=== PATIENT | female | born 1945 | race Native Hawaiian/Other Pacific Islander ===

== ENCOUNTER 2018-01-15 11:05 | Day surgery (SDC) | payer MEDICARE ==
[2018-01-15] MEDS ORDERED: Midazolam 2 MG/2 ML VIAL ONE (14:26)
[2018-01-15] MEDS ORDERED: Propofol 10 mg/ml Inj (20 ML) ONE (14:26)
[2018-01-15] MEDS ORDERED: HYDROmorphone 0.5 mg/0.5 ml ISec IVP PRN (15:10)
[2018-01-15 18:35] VITALS: RESP 18; O2SAT 96
[2018-01-15 18:36] VITALS: BP 133/97; PULSE 95; TEMP 97.9
--- NOTE | 2018-01-16 10:11 | OP ---
PROCEDURE DATE: 01/15/2018 PREOPERATIVE DIAGNOSES: Endometrial hyperplasia, endometrial polyp, post menopausal bleeding. POSTOPERATIVE DIAGNOSES: Endometrial hyperplasia, endometrial polyp, post menopausal bleeding. PROCEDURE PERFORMED: Operative hysteroscopy, endometrial polypectomy, dilation and curettage. TYPE OF ANESTHESIA: LMA. FINDINGS: Small, atrophic, anteverted uterus, cervical stenosis. Uterus sounded to 7 cm. Two polypoid vascular type polyps noted within the endometrial cavity and removed with MyoSure device. Good hemostasis noted. ESTIMATED BLOOD LOSS: 5 mL. COMPLICATIONS: None. SPECIMEN: Endocervical curettings, endometrial curettings, endometrial polyps. DESCRIPTION OF PROCEDURE: The patient was taken to the operating room, where she was given general anesthesia. Once it was found to be adequate, she was placed on the operating table in dorsal supine position with legs supported using stirrups. The patient was then prepped and draped in the usual sterile fashion. A time-out confirmed correct patient and correct procedure. Bimanual exam was performed with the above-mentioned findings. A Ho retractor was placed in the anterior and posterior fornix of the vagina. The cervix was adequately visualized. A single-tooth tenaculum was placed in the anterior lip of the cervix. Endocervical curettings were obtained with [facility] and sent to pathology on [facility]. The uterus was then sounded to 7 cm, following which the cervix was sequentially dilated to allow for introduction of the hysteroscope under direct visualization using normal saline as the distention media. Bilateral ostia were visualized. There was polypoid tissue noted that was removed with the MyoSure device. MyoSure was then removed. There was good hemostasis noted. Gentle curettage was done. Specimen was sent to Pathology and labeled as endometrial curettings. All instruments were removed. There was good hemostasis noted. At the end of the procedure, all needle, sponge and instrument counts were noted and correct x2. The patient tolerated the procedure well and was transferred to the recovery room in stable condition. Michelle Barrett MD
== END 2018-01-15 17:15 | disposition home or self-care (01) ==
LOC: C.SDS 11:05
PROVIDERS: ATTEND Obstetrics & Gynecology
DX: N85.00 Endometrial hyperplasia, unspecified (principal); N95.0 Postmenopausal bleeding
CPT/HCPCS: 58558; J2250; J2704; J3010

== ENCOUNTER 2018-02-15 06:09 | Inpatient (IN) | payer MEDICARE ==
[2018-02-11 09:18] VITALS: BMI 25.2
[2018-02-15] MEDS ORDERED: Lidocaine/Epinephrine 1% 1:100000 10 ML IJ ONE (07:28)
[2018-02-15] MEDS ORDERED: Bupivacaine 0.25% 20 ML INJ IJ ONE (07:28)
[2018-02-15] MEDS ORDERED: ceFAZolin 1 gm FROZEN Premix 2 GM/100 ML ML IVPB ONE (07:29)
[2018-02-15] MEDS ORDERED: Propofol 10 mg/ml Inj (20 ML) ONE (07:34)
[2018-02-15] MEDS ORDERED: Midazolam 2 MG/2 ML VIAL ONE (07:34)
[2018-02-15] MEDS ORDERED: Bupivacaine HCl 0.5% PF (30 ml) Inj ONE (08:40)
[2018-02-15] MEDS ORDERED: Neostigmine Methylsulfate 3mg/3ml Syringe IV ONE (11:51)
[2018-02-15] MEDS ORDERED: Morphine 4 MG/ML VIAL ONE (12:06)
[2018-02-15] MEDS ORDERED: Oxycodone/Acetaminophen 5/325 mg Tab PO PRN (12:27)
[2018-02-15] MEDS: HYDROmorphone 0.5 mg/0.5 ml ISec IVP PRN ×4 (12:50→13:55)
[2018-02-15] MEDS ORDERED: Lactated Ringer's 1,000 ML IV ONE (13:40)
[2018-02-15] MEDS: Oxycodone/Acetaminophen 5/325 mg Tab PO PRN ×2 (16:10→20:29)
[2018-02-16 06:44] LABS: BASO % 0.4 % (0.0-2.0); EOS # 0.2 K/uL (0.0-0.7); EOS % 3.4 % (0.0-4.0); HEMOGLOBIN 11.5 g/dL (11.0-16.0); LYMPH # 1.2 K/uL (1.0-4.3); LYMPH % 20.9 % (20.0-40.0); MEAN CELL VOLUME 91.9 fL (81.0-99.0); MEAN CORPUSCULAR HEMOGLOBIN 30.8 pg (27.0-31.0); MEAN CORPUSCULAR HGB CONC 33.5 g/dL (33.0-37.0); MEAN PLATELET VOLUME 8.6 fL (7.2-11.7); MONO # 0.3 K/uL (0.0-0.8); MONO % 5.6 % (0.0-10.0); NEUT # 3.9 K/uL (1.8-7.0); NEUT % 69.7 % (50.0-75.0); RBC 3.75 Mil/uL (3.80-5.20); RED CELL DISTRIBUTION WIDTH 13.3 % (11.5-14.5); WHITE BLOOD COUNT 5.6 K/uL (4.8-10.8)
[2018-02-16] MEDS ORDERED: Magnesium Hydroxide Susp 30 ml UD PO ONE (09:17)
[2018-02-16 10:20] LABS: ALB/GLOB RATIO 1.3 (1.0-2.1); ALBUMIN 3.8 g/dL (3.5-5.0); ALT/SGPT 34 U/L (9-52); AST/SGOT 34 U/L (14-36); BLOOD UREA NITROGEN 9 mg/dL (7-17); CALCIUM 8.8 mg/dl (8.6-10.4); GFR NON-AFRICAN AMERICAN > 60
--- NOTE | 2018-02-16 10:27 | CP.PCM.PN ---
Subjective - Date & Time of Evaluation Date of Evaluation: 02/16/18 Time of Evaluation: 10:25 - Subjective Subjective: pain well controlled, no complaints Objective - Vital Signs/Intake and Output Vital Signs (last 24 hours): Temp Pulse Resp BP Pulse Ox 98.4 F 68 18 107/58 L 96 02/16/18 07:00 02/16/18 07:00 02/16/18 07:00 02/16/18 07:00 02/16/18 07:00 Intake and Output: 02/16/18 02/16/18 06:59 18:59 Intake Total 600 Output Total 1050 Balance -450 - Medications Medications: Current Medications Ibuprofen (Motrin Tab) 600 mg PO TID PRN PRN Reason: Pain, Mild (1-3) Ketorolac Tromethamine (Toradol) 30 mg IVP Q6 MILEY Last Admin: 02/16/18 06:06 Dose: 30 mg Oxycodone/Acetaminophen (Percocet 5/325 Mg Tab) 2 tab PO Q4H PRN PRN Reason: Pain, severe (8-10) Stop: 02/18/18 12:28 Last Admin: 02/15/18 20:29 Dose: 2 tab Oxycodone/Acetaminophen (Percocet 5/325 Mg Tab) 1 tab PO Q4H PRN PRN Reason: Pain, moderate (4-7) Stop: 02/18/18 12:28 Simethicone (Mylicon Chew Tab) 80 mg PO Q8 MILEY - Labs Labs: 02/16/18 06:28 02/16/18 09:53 - GI/Abdominal Exam Additional comments: abdomen is soft, NTND, +BS, tympanic to precussion Assessment and Plan - Assessment and Plan (Free Text) Assessment: s/p robotic total hysterectomy with BSO and cystoscopy Plan: discontinue nasal canula regular diet DC kim OOB and ambulation pain control routine post op care patient seen at request of private physician Dr. Michelle Barrett - Dr. Rona Barrett, laborist communications tower climber
[2018-02-16] MEDS: Simethicone 80 mg Chewtab PO SCH ×2 (10:41→13:15)
[2018-02-16 17:30] VITALS: BP 157/79; PULSE 88; RESP 20; TEMP 99; O2SAT 98
--- NOTE | 2018-02-16 19:07 | CP.PCM.DIS ---
Provider - Provider Date of Admission: 02/15/18 12:24 Attending physician: Michelle Barrett MD Primary care physician: Dr Armijo Time Spent in preparation of Discharge (in minutes): 30 Diagnosis - Discharge Diagnosis (1) History of robot-assisted laparoscopic hysterectomy Status: Acute Priority: Medium (2) Pelvic mass Status: Acute (3) Endometrial hyperplasia Status: Acute Hospital Course - Lab Results Lab Results: Most Recent Lab Values WBC 5.6 K/uL (4.8-10.8) 02/16/18 06:28 RBC 3.75 Mil/uL (3.80-5.20) L 02/16/18 06:28 Hgb 11.5 g/dL (11.0-16.0) 02/16/18 06:28 Hct 34.4 % (34.0-47.0) 02/16/18 06:28 MCV 91.9 fL (81.0-99.0) 02/16/18 06:28 MCH 30.8 pg (27.0-31.0) 02/16/18 06:28 MCHC 33.5 g/dL (33.0-37.0) 02/16/18 06:28 RDW 13.3 % (11.5-14.5) 02/16/18 06:28 Plt Count 160 K/uL (130-400) 02/16/18 06:28 MPV 8.6 fL (7.2-11.7) 02/16/18 06:28 Neut % (Auto) 69.7 % (50.0-75.0) 02/16/18 06:28 Lymph % (Auto) 20.9 % (20.0-40.0) 02/16/18 06:28 [place] % (Auto) 5.6 % (0.0-10.0) 02/16/18 06:28 Eos % (Auto) 3.4 % (0.0-4.0) 02/16/18 06:28 Baso % (Auto) 0.4 % (0.0-2.0) 02/16/18 06:28 Neut # (Auto) 3.9 K/uL (1.8-7.0) 02/16/18 06:28 Lymph # (Auto) 1.2 K/uL (1.0-4.3) 02/16/18 06:28 [place] # (Auto) 0.3 K/uL (0.0-0.8) 02/16/18 06:28 Eos # (Auto) 0.2 K/uL (0.0-0.7) 02/16/18 06:28 Baso # (Auto) 0.0 K/uL (0.0-0.2) 02/16/18 06:28 Sodium 137 mmol/L (132-148) 02/16/18 09:53 Potassium 4.4 mmol/L (3.6-5.2) 02/16/18 09:53 Chloride 101 mmol/L (98-107) 02/16/18 09:53 Carbon Dioxide 27 mmol/L (22-30) 02/16/18 09:53 Anion Gap 14 (10-20) 02/16/18 09:53 BUN 9 mg/dL (7-17) 02/16/18 09:53 Creatinine 0.8 mg/dL (0.7-1.2) 02/16/18 09:53 Est GFR ( Amer) > 60 02/16/18 09:53 Est GFR (Non-Af Amer) > 60 02/16/18 09:53 POC Glucose (mg/dL) 132 mg/dL (65-110) H 02/16/18 11:21 Random Glucose 111 mg/dL (65-105) H 02/16/18 09:53 Calcium 8.8 mg/dl (8.6-10.4) 02/16/18 09:53 Total Bilirubin 0.6 mg/dL (0.2-1.3) 02/16/18 09:53 AST 34 U/L (14-36) 02/16/18 09:53 ALT 34 U/L (9-52) 02/16/18 09:53 Alkaline Phosphatase 46 U/L (38-126) 02/16/18 09:53 Total Protein 6.7 g/dL (6.3-8.3) 02/16/18 09:53 Albumin 3.8 g/dL (3.5-5.0) 02/16/18 09:53 Globulin 2.9 gm/dL (2.2-3.9) 02/16/18 09:53 Albumin/Globulin Ratio 1.3 (1.0-2.1) 02/16/18 09:53 Blood Type O POSITIVE 02/15/18 07:45 Antibody Screen Negative 02/15/18 07:45 Discharge Exam - Head Exam Head Exam: ATRAUMATIC - Eye Exam Eye Exam: EOMI Pupil Exam: NORMAL ACCOMODATION - ENT Exam ENT Exam: Mucous Membranes Moist - Respiratory Exam Respiratory Exam: Clear to PA & Lateral - Cardiovascular Exam Cardiovascular Exam: REGULAR RHYTHM - GI/Abdominal Exam GI & Abdominal Exam: Normal Bowel Sounds, Soft, Unremarkable - Rectal Exam Additional comments: incicsion c/d/i bodmne - Exam External exam: NORMAL EXTERNAL EXAM - Extremities Exam Extremities exam: calf tenderness, full ROM, joint swelling, normal capillary refill, normal inspection, pedal edema, tenderness, pedal pulses present - Back Exam Back exam: absent: CVA tenderness (L), CVA tenderness (R), FULL ROM, muscle spasm, NORMAL INSPECTION, paraspinal tenderness, rash noted, tenderness, vertebral tenderness Discharge Plan - Discharge Medications Prescriptions: Ibuprofen [Motrin Tab] 600 mg PO TID PRN #15 tab PRN Reason: Pain, Mild (1-3) oxyCODONE/Acetaminophen [Percocet 5/325 mg Tab] 1 tab PO Q4H PRN #12 tab PRN Reason: Pain, Moderate (4-7) - Follow Up Plan Condition: GOOD Disposition: HOME/ ROUTINE Patient education suggested?: Yes Instructions: Robot-Assisted Hysterectomy Additional Instructions: Continue home medications If fever greater than 100.4, heavy bleeding more than 2 pads, / hour, lightheadd, dizzyness, chest pain, shortness or breath, infection near incsion, severe pain, go to nearest ER and Call at [phone] Barrett 02/21/[address] [place] [address] Call if any questions or concerns
--- NOTE | 2018-02-19 09:47 | OP ---
PROCEDURE DATE: 02/18/2018 SURGEON: Michelle Barrett MD. ASSISTANTS: NORMA Douglass and Shant Rebollar MD. PREOPERATIVE DIAGNOSES: Endometrial hyperplasia, pelvic mass, pelvic pain, fibroid. POSTOPERATIVE DIAGNOSES: Endometrial hyperplasia, pelvic mass, pelvic pain, fibroid. PROCEDURES PERFORMED: Total robotic hysterectomy, bilateral salpingo-oophorectomy, cystoscopy with bilateral ureteral catheterization, stent placement with indocyanine green, pelvic washing, and excision of paratubal cyst. Please refer to separate operative note by Dr. Shant Rebollar for bilateral ureterolysis. ESTIMATED BLOOD LOSS: 25 mL. OPERATIVE FINDINGS: Enlarged uterus with normal appearing ovaries and tubes. There was enlarged paratubal cyst that was noted on the left fallopian tube. Rachael Brumfield, assistant in nursing, was present for the entire case essentially in gaining entry, retraction, helping to enter all laparoscopic ports, retraction closure, manipulating the uterus, removing the specimen, closing all the instruments, and was present for the entire care. COMPLICATIONS: None. ANESTHESIA: General endotracheal. INDICATIONS: The patient is a 72-year-old that had an endometrial biopsy that was noted to be atypical hyperplasia. The patient was extensively counseled about referral to T[facility] RECONDITIONER/Oncology and need for possible lymph node dissection during a minimally invasive hysterectomy with BSO cases, was counseled on need for possible potential reoperation. The patient declined intervention by T[facility] CAR RECONDITIONER/Oncology, and understood risks, benefits, alternatives, and indications of procedure, and need for possible second surgery for lymph node dissection if did come positive for cancer based on final diagnoses. The patient understood that after 42% risk of cancer diagnosis preoperative endometrial hyperplasia, the patient agreed, consented to the procedure. All consents were obtained. DESCRIPTION OF PROCEDURE: The patient was taken to the operating room, where she was given general anesthesia. Once it was found to be adequate, she was placed on the operating table in dorsal supine position with legs supported using stirrups. The patient was then prepped and draped in the usual sterile fashion. A time-out confirmed correct patient and correct procedure. Bimanual exam was performed with the above-mentioned findings. The patient was given preoperative prophylactic antibiotics. Following this, a cystoscopy was then performed using a 30-degree scope. Bilateral ureters were noted. The ureteral stent was then placed with the double black length. A 5 mL of IC-green was inserted under direct visualization. The opposite ureteral stent was then identified. The stent was then placed under direct visualization, and IC-green was then inserted into 5 mL. The was normal appearing bladder. The cystoscope was then removed, and a Adams catheter was then inserted. A Ho retractor was placed in the anterior and posterior fornix of the vagina. The cervix was adequately visualized. A single-tooth tenaculum was placed in the anterior lip of the cervix. Uterus was then sounded. The V-Care cup was then inserted into the cervix. The balloon was then insufflated, and the single-tooth tenaculum was then removed. The V-Care was then carefully applied following the . The V-Care was then carefully inserted into the vagina. Following that, the PEG tube was then repositioned, and the surgeon then re-gloved, and attention was then turned to the abdomen. The patient was given 0.25% Marcaine local anesthetic, and an infraumbilical skin incision was made, 8 mm using two towel clamps to elevate the skin. The Veress needle was then inserted. Normal saline confirmed placement followed by normal opening pressure. The abdomen was then insufflated with 15 mmHg. The Veress needle was then removed, and the skin incision was extended, and laparoscope was then inserted under direct visualization. There was careful confirmation noted and inspection of the peritoneal cavity as noted before. Then, two additional ports were then inserted in the right and left lower quadrants, 8 mm ports after the administration of local anesthetic under direct visualization. A 12 mm medical assistant supervisor port was then placed into the left upper quadrant under direct visualization. The da Brendon robot was then docked appropriate to normal protocol. Following that, the surgeon re-gloved. The instruments were then placed with a monopolar curved scissor in one hand and laparoscopic port in arm 2 and also a bipolar device in the third arm. Following this, the surgeon was then re-gloved and was . The uterus was then anteverted by the medical assistant supervisor. Following this, the round ligaments were identified on both sides, cauterized using the bipolar device, and cut using the monopolar scissors. The IP ligament was identified after identifying the ureter. There were some adhesions noted. Prior to that, a paratubal cyst was removed carefully and identified, and placed into an EndoCatch bag and placed in the cul-de-sac. Please refer to Dr. Shant Rebollar's portion of bilateral ureterolysis for the operative report. Following that, the IP ligaments were identified on either side after the ureter was then carefully dissected out and clamped using the bipolar device and using the monopolar device and identified. Following this, uterine arteries were then carefully skeletonized and appropriately coagulated and intact. Following the coagulation and cutting of the round ligament, the anterior portion of the broad ligament was identified and dissected anteriorly. The bladder flap was created anteriorly and tented up using the additional arm. After that was the uterine artery identified, ligated, and cut. The V-Care device was then noticeable after the bladder was carefully dissected, and using the monopolar, the was carefully incised and cut, and a colpotomy was performed at 360 degrees. The specimen was then removed through the vagina, including the EndoCatch bag specimen with the paratubal cyst. The closure was then closed using a type suture x2. There was good hemostasis of the vaginal cuff, site, and again, the ureters using the robotic device were identified, and showed that they were out of the operating field. The abdomen was carefully irrigated and inspected with good hemostasis noted. All instruments were removed under direct visualization. Prior to that, the 12 mm port was closed using a Sincere-Zee, and the fascia was reapproximated and closed. All laparoscopic ports were removed under direct visualization. The abdomen was desufflated. The skin was reapproximated and closed with 4-0 Monocryl in a running subcuticular fashion. At the end of the procedure, all needle, sponge and instrument counts were noted to be correct x2. The patient tolerated the procedure well and was transferred to the recovery room in stable condition. Michelle Barrett MD
== END 2018-02-16 20:02 | disposition home or self-care (01) | DRG 761 ==
LOC: C.SDS 06:09 → C.9P 12:24 → C.6T 14:00
PROVIDERS: ADMIT Obstetrics & Gynecology; ATTEND Obstetrics & Gynecology
DX: N85.00 Endometrial hyperplasia, unspecified (principal); R19.00 Intra-abdominal and pelvic swelling, mass and lump, unspecified site; I10 Essential (primary) hypertension; E78.00 Pure hypercholesterolemia, unspecified